=== PATIENT | female | born 1965 | race Caucasian/White ===

== ENCOUNTER 2016-08-04 14:54 | Emergency (ER) | payer MEDICARE ==
[~2016-08-04 14:54] MED LIST: ACET325 PO; PRIL20CA PO
[2016-08-04 15:03] VITALS: BP 137/85; PULSE 81; RESP 20; TEMP 98.8; O2SAT 100
[2016-08-04] MEDS ORDERED: PLAQ200T PO (15:07)
[2016-08-04] MEDS ORDERED: EYE GTTS (15:07)
[2016-08-04] MEDS ORDERED: [UNRECOGNIZED DRUG - OTHER] (15:07)
--- NOTE | 2016-08-04 15:27 | PD ---
HPI Chief Complaint: Pain: Acute or Chronic Time Seen by Provider: 15:05 Travel History International Travel<30 days: No Contact w/Intl Traveler<30days: No Traveled to known affect area: No History of Present Illness HPI 51 y/o female presents with pain to her left side of her neck, head, arm, leg with associated numbness. She states she always has pain to those areas but the numbness while at the same time is new for her. She states that the numbness started at about 11 to her lower face on the left with her left arm and leg. She states now she doesn't have any numbness. She states she is on plaquanil as she is being worked up for possible lupus. She states she doesn't currently have a neurologist and is working on getting one after her insurance changed. She states that no modifying factors other then worse with movement. patient is a poor historian [facility] Past Medical History Cancer: No Cardiovascular Problems: No Diabetes: No Endocrine: No Gastrointestinal Disorders: Yes (lower abd pain which causes some nausea) Genitourinary: No Hepatitis: No Hiatal Hernia: No Immune Disorder: No Musculoskeletal: Yes (arthritis neck and back problems) Neurologic: Yes (frequent headaches) Psychiatric: Yes (hx of anxiety ok now) Reproductive: No Respiratory: No Thyroid Disease: No ?: Not : 2 Para: 2 Past Surgical History Oral Surgery: Yes (septoplasty) Other Surgery: Yes Social History Alcohol Use: No Tobacco Use: Yes (03/06 PPD) Substance Use: No Allergies-Medications (Allergen,Severity, Reaction): Coded Allergies: Penicillin (Verified Allergy, Severe, Rash, 08/04/16) Reported Meds & Prescriptions Reported Meds & Active Scripts Active Reported [Exita] [Eye Gtts] Plaquenil (Hydroxychloroquine Sulfate) 200 Mg Tab Unknown Dose PO BID Take with food Review of Systems ROS Limitations: Poor Historian Except as stated in HPI: all other systems reviewed are Neg Physical Exam Exam Limitations: Poor Historian Narrative GENERAL: Well-nourished, well-developed patient. SKIN: Warm and dry. HEAD: Normocephalic and atraumatic. EYES: No injection or drainage. ENT: No nasal drainage noted. NECK: Supple, trachea midline. nttp in midline, ttp to left trapezius CARDIOVASCULAR: Regular rate and rhythm RESPIRATORY: no increased effort. No accessory muscle use. GASTROINTESTINAL: Abdomen soft, non-tender, nondistended. EXTREMITIES: No edema. no specific pain with joint movement BACK: Nontender without obvious deformity. NEUROLOGICAL: Awake and alert. Motor and sensory grossly within normal limits. Normal speech. 5/5 in all 4 extremities Data Data Last Documented VS Vital Signs Date Time Temp Pulse Resp B/P Pulse Ox O2 Delivery O2 Flow Rate FiO2 08/04/16 18:09 65 20 104/78 99 08/04/16 15:03 98.8 Orders Magnesium (Mg) (08/04/16 15:14) Phosphorus (Po4) (08/04/16 15:14) Complete Blood Count With Diff (08/04/16 15:14) Basic Metabolic Panel (Bmp) (08/04/16 15:14) Urinalysis - C+S If Indicated (08/04/16 15:14) Act Partial Throm Time (Ptt) (08/04/16 15:14) Prothrombin Time / Inr (Pt) (08/04/16 15:14) Electrocardiogram (08/04/16 ) Iv Access Insert/Monitor (08/04/16 15:14) Ecg Monitoring (08/04/16 15:14) Oximetry (08/04/16 15:14) Mri Brain W&W/O Contrast (08/04/16 ) Gadodiamide Pf Inj (Omniscan Pf Inj) (08/04/16 17:50) Labs Laboratory Tests Test 08/04/16 08/04/16 15:30 18:15 White Blood Count 7.0 TH/MM3 Red Blood Count 4.66 MIL/MM3 Hemoglobin 14.5 GM/DL Hematocrit 43.5 % Mean Corpuscular Volume 93.5 FL Mean Corpuscular Hemoglobin 31.0 PG Mean Corpuscular Hemoglobin 33.2 % Concent Red Cell Distribution Width 12.7 % Platelet Count 245 TH/MM3 Mean Platelet Volume 7.5 FL Neutrophils (%) (Auto) 68.4 % Lymphocytes (%) (Auto) 23.7 % Monocytes (%) (Auto) 5.4 % Eosinophils (%) (Auto) 1.9 % Basophils (%) (Auto) 0.6 % Neutrophils # (Auto) 4.9 TH/MM3 Lymphocytes # (Auto) 1.6 TH/MM3 Monocytes # (Auto) 0.4 TH/MM3 Eosinophils # (Auto) 0.1 TH/MM3 Basophils # (Auto) 0.0 TH/MM3 CBC Comment DIFF FINAL Differential Comment Prothrombin Time 11.3 SEC Prothromb Time International 1.0 RATIO Ratio Activated Partial 27.8 SEC Thromboplast Time Sodium Level 141 MEQ/L Potassium Level 5.1 MEQ/L Chloride Level 108 MEQ/L Carbon Dioxide Level 29.0 MEQ/L Anion Gap 4 MEQ/L Blood Urea Nitrogen 13 MG/DL Creatinine 0.91 MG/DL Estimat Glomerular Filtration 66 ML/MIN Rate Random Glucose 105 MG/DL Calcium Level 9.0 MG/DL Phosphorus Level 2.8 MG/DL Magnesium Level 2.5 MG/DL Urine Color YELLOW Urine Turbidity CLEAR Urine pH 7.0 Urine Specific Mar[place] 1.015 Urine Protein NEG mg/dL Urine Glucose (UA) NEG mg/dL Urine Ketones NEG mg/dL Urine Occult Blood SMALL Urine Nitrite NEG Urine Bilirubin NEG Urine Leukocyte Esterase NEG Urine RBC 0-3 /hpf Urine WBC 0-2 /hpf Urine Squamous Epithelial 0-5 /hpf Cells Urine Bacteria NONE /hpf Microscopic Urinalysis Comment CULT NOT INDICATED MDM Medical Decision Making Medical Screen Exam Complete: Yes Emergency Medical Condition: Yes Medical Record Reviewed: Yes (pmh confirmed) Interpretation(s) CBC & BMP Diagram 08/04/16 15:30 mri brain no acute Differential Diagnosis TIA, mass, MS, musculoskeletal, neuropathy.... Narrative Course will check labs, mri brain and discuss with neurology mri brain no acute, Patient denies any new complaints and states that they are feeling better. Patient happy with care, all questions answered. Patient knows that follow up is incumbent on them and to return to the emergency room immediately if new or worsening symptoms develop. Patient given strict return precautions, vitals reviewed and are normal, agrees to further workup as an outpatient. Physician Communication Physician Communication dr vigil agrees to mri brain and if normal can dc with outpatient follow up Diagnosis Primary Impression: Left arm numbness Additional Impression: Pain of left side of body Referrals: Julianna Vigil MD call for appointment Patient Instructions: General Instructions Additional Instructions: return as needed, tylenol as needed Med/Other Pt SpecificInfo: No Change to Meds Disposition: 01 DISCHARGE HOME Condition: Stable Masha Gallegos MD Aug 04, 2016 15:27
[2016-08-04 15:28] VITALS: O2SAT 96
[2016-08-04 15:32] LABS: AUTOMATED NEUTROPHIL # 4.9 TH/MM3 (1.8-7.7); BASOPHIL % 0.6 % (0.0-2.0); EOSINOPHIL # 0.1 TH/MM3 (0-0.4); EOSINOPHIL % 1.9 % (0.0-4.0); HEMATOCRIT 43.5 % (35.0-46.0); HEMO FLAGS DIFF FINAL; LYMPH % 23.7 % (9.0-44.0); LYMPHOCYTE # 1.6 TH/MM3 (1.0-4.8); MEAN CELL VOLUME 93.5 FL (80.0-100.0); MEAN CORPUSCULAR HGB CONC 33.2 % (32.0-36.0); MONO % 5.4 % (0.0-8.0); NEUT % 68.4 % (16.0-70.0); PLATELET COUNT 245 TH/MM3 (150-450); RED BLOOD COUNT 4.66 MIL/MM3 (4.00-5.30); RED CELL DISTRIBUTION WIDTH 12.7 % (11.6-17.2)
[2016-08-04 15:47] LABS: APTT (PATIENT) 27.8 SEC (24.3-30.1); PROTHROMBIN TIME - PATIENT 11.3 SEC (9.8-11.6)
[2016-08-04 16:21] LABS: POTASSIUM 5.1 MEQ/L (3.5-5.1)
[2016-08-04 16:24] LABS: MAGNESIUM 2.5 MG/DL (1.5-2.5)
[2016-08-04 16:28] VITALS: BP 137/85; PULSE 75; RESP 20; O2SAT 95
[2016-08-04] MEDS ORDERED: GADODIAMIDE PF 287 MG/ML 10 ML VIAL (for RAD MRI) IV ONE (17:50)
[2016-08-04 18:09] VITALS: BP 104/78; PULSE 65; RESP 20; O2SAT 99
--- NOTE | 2016-08-04 18:33 | RADHPO ---
EXAM DATE/TIME: 08/04/2016 17:42 [facility] COMPARISON: No previous studies available for comparison. INDICATIONS : Cephalgia. Left side weakness. CONTRAST: 10 cc Omniscan (gadodiamide) IV MEDICAL HISTORY : Lupus. SURGICAL HISTORY : Fusion, cervical. ENCOUNTER: Initial ACUITY: 1 day PAIN SCORE: 5/10 LOCATION: cranial TECHNIQUE: Multiplanar, multisequence MRI of the brain was performed both prior to and following the administrat ion of paramagnetic contrast. FINDINGS: CEREBRUM: The ventricles are normal for age. No evidence of midline shift, mass lesion, hemorrhage or acute in farction. No extraaxial fluid collections are seen. The pituitary gland and suprasellar cistern are normal in configuration. WHITE MATTER: No significant signal abnormalities are seen in the white matter. POSTERIOR FOSSA: The cerebellum and brainstem are intact. The 4th ventricle is midline. The cerebellopontine angle is unremarkable. The cerebellar tonsils are normal in position. DIFFUSION IMAGING: No focal areas of restricted diffusion are seen. No evidence of acute infarction. EXTRACRANIAL: The visualized portions of the orbits and paranasal sinuses are unremarkable. POST-CONTRAST: No abnormal areas of parenchymal or dural enhancement. No evidence of blood-brain barrier breakdown. CONCLUSION: Normal examination. Angel Edmonds Jr., MD on August 04, 2016 at 18:28 Board Certified Radiologist. This report was verified electronically.
[2016-08-04 18:41] LABS: BLOOD, URINE SMALL (NEG); GLUCOSE,URINE NEG (NEG); KETONE, URINE NEG (NEG); NITRITE,URINE NEG (NEG)
[2016-08-04 18:43] LABS: URINE COLOR YELLOW (YELLW/STRAW)
[2016-08-04 18:44] LABS: COMMENT (UR) CULT NOT INDICATED; CULTURE IF INDICATED CULT NOT INDICATED; RBC, URINE 0-3 /hpf (0-3); SQUAMOUS EPITHELIAL CELL URINE 0-5 /hpf (0-5); WBC, URINE 0-2 /hpf (0-5)
--- NOTE | 2016-08-05 13:57 | EKG ---
Date Performed: 08/04/2016 Time Performed: 15:24:38 PTAGE: 51 years EKG: Sinus rhythm Inferior ST changes are nonspecific Compared to previous tracing, no significant change Borderline E CG PREVIOUS TRACING : 07/31/2013 15.05 DOCTOR: Mir James Interpretating Date/Time 08/05/2016 13:56:37
== END 2016-08-04 18:49 | disposition home or self-care (01) ==
LOC: PHED 14:54
DX: R20.0 Anesthesia of skin (principal); M54.2 Cervicalgia; R51 Headache; M79.602 Pain in left arm; M79.605 Pain in left leg; R94.31 Abnormal electrocardiogram [ECG] [EKG]; F17.200 Nicotine dependence, unspecified, uncomplicated; Z87.39 Personal history of other diseases of the musculoskeletal system and connective tissue
CPT/HCPCS: 70553; 80048; 81001; 83735; 84100; 85025; 85610; 85730; 93005; 99285; A9579